=== PATIENT | female | born 2000 | race African-American/Black ===

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

== ENCOUNTER 2018-03-19 14:22 | Emergency (ER) | payer OTHER ==
[~2018-03-19] VITALS: Wt 71.0 kg
[~2018-03-19 14:22] MED LIST: CETI10CA PO; CIPR500T4 PO; NITR-58 PO; PHEN-537 PO
[2018-03-19 14:24] VITALS: BP 156/82; PULSE 90; RESP 20; Wt 71.0 kg
[2018-03-19] MEDS ORDERED: NITR-58 PO (15:41)
--- NOTE | 2018-03-19 15:44 | ERD ---
ER Documentation Chief Complaint Chief Complaint UTI symptoms since Sat HPI 17-year-old female presenting with dysuria and urinary frequency. She states is been going for the last 3 days. Denies any hematuria. Denies back pain. Denies fevers. Denies use of medications. Denies medical problems. Is sexually active with no history of STDs. Last STD screening was a few months ago which was negative. Denies any vaginal discharge. LNMP 3 weeks to go. . NKDA. Surgical history denies. Social history denies ROS All systems reviewed and are negative except as per history of present illness. Medications Home Meds Active Scripts Nitrofurantoin Monohyd Macrocr* (Macrobid*) 100 Mg Capsr, 100 MG PO BID for 14 Days, CAP Prov:SARA BLANCHARD PA-C 03/19/18 Phenazopyridine Hcl* (Pyridium*) 100 Mg Tab, 100 MG PO TID PRN for URINARY PAIN, #8 TAB Prov:MITZI TORRES PA-C 06/11/17 Ciprofloxacin Hcl* (Ciprofloxacin Hcl*) 500 Mg Tablet, 500 MG PO BID for 7 Days, #14 TAB Prov:MITZI TORRES PA-C 06/11/17 Cetirizine Hcl* (Zyrtec*) 10 Mg Capsule, 10 MG PO DAILY, #15 TAB.CHEW Prov:PHILIP JORDAN MD 04/16/17 Nitrofurantoin Monohyd Macrocr* (Macrobid*) 100 Mg Capsr, 100 MG PO BID for 7 Days, CAP Prov:SURESH MILLS 06/24/16 Allergies Allergies: Coded Allergies: No Known Drug Allergies (Verified Allergy, Unknown, 04/16/17) PMhx/Soc Medical and Surgical Hx: pt denies Medical Hx, pt denies Surgical Hx Hx Alcohol Use: No Hx Substance Use: No Hx Tobacco Use: No Smoking Status: Never smoker FmHx Family History: No diabetes, No coronary disease, No other Physical Exam Vitals Vital Signs Date Temp Pulse Resp B/P (MAP) Pulse Ox O2 O2 Flow FiO2 Time Delivery Rate 03/19/18 98.8 90 20 156/82 97 14:24 (106) Physical Exam GENERAL: The patient is well-appearing, well-nourished, in no acute distress CHEST: Clear to auscultation bilaterally. There are no rales, wheezes or rhonchi. HEART: Regular rate and rhythm. No murmurs, clicks, rubs or gallops. No S3 or S4. ABDOMEN:Soft, nontender and nondistended. Good bowel sounds. No rebound or guarding. No gross peritonitis. No gross organomegaly or masses. BACK: No midline or flank tenderness. Results 24 hrs Laboratory Tests Test 03/19/18 15:29 03/19/18 15:31 Bedside Urine pH (LAB) 5.5 Bedside Urine Protein (LAB) Negative Bedside Urine Glucose (UA) Negative Bedside Urine Ketones (LAB) Negative Bedside Urine Blood Trace-lysed Bedside Urine Nitrite (LAB) Negative Bedside Urine Leukocyte Esterase (L 1+ POC Beta HCG, Qualitative NEGATIVE Procedures/MDM MDM: 17-year-old female presenting with dysuria. Patient does have urinary findings consistent with urinary tract infection. I have low suspicion for this. I suspicion for pelvic emergency. Patient recently had STD screenings have low suspicion for STD as patient does not have vaginal discharge. Patient is discharged stricter precautions and told to follow-up with primary care within 1-2 days for close evaluation. Patient is told symptoms change or worsen to return immediately to the ER. All questions answered at discharge Departure Diagnosis: Primary Impression: Dysuria Condition: Stable Patient Instructions: Dysuria Referrals: [facility] YOU HAVE RECEIVED A MEDICAL SCREENING EXAM AND THE RESULTS INDICATE THAT YOU DO NOT HAVE A CONDITION THAT REQUIRES URGENT TREATMENT IN THE EMERGENCY DEPARTMENT. FURTHER EVALUATION AND TREATMENT OF YOUR CONDITION CAN WAIT UNTIL YOU ARE SEEN IN YOUR DOCTORS OFFICE WITHIN THE NEXT 1-2 DAYS. IT IS YOUR RESPONSIBILITY TO MA KE AN APPOINTMENT FOR FOLOW-UP CARE. IF YOU HAVE A PRIMARY DOCTOR --you should call your primary doctor and schedule an appointment IF YOU DO NOT HAVE A PRIMARY DOCTOR YOU CAN CALL OUR PHYSICIAN REFERRAL HOTLINE AT IF YOU CAN NOT AFFORD TO SEE A PHYSICIAN YOU CAN CHOSE FROM THE FOLLOWING [facility] [address] [facility] [address] [facility] [address] [facility] [address] [facility]. [facility] [address] [facility]. [facility] [address] Additional Instructions: FOLLOW UP WITH YOUR PRIMARY CARE PHYSICIAN TOMORROW.Return to this facility if you are not improving as expected. SARA BLANCHARD PA-C Mar 19, 2018 15:44
== END 2018-03-19 16:08 | disposition home or self-care (01) ==
LOC: FTE 14:22
DX: R30.0 Dysuria (principal)
CPT/HCPCS: 81003; 81025; Z7502; 99283

== ENCOUNTER 2018-04-12 19:01 | Emergency (ER) | payer OTHER ==
[~2018-04-12] VITALS: Ht 157.5 cm; Wt 70.8 kg
[2018-04-12 19:23] VITALS: BP 159/100; PULSE 96; RESP 19; Ht 157.5 cm; Wt 70.8 kg
[2018-04-12] MEDS ORDERED: CIPR500T4 PO (21:57)
--- NOTE | 2018-04-12 21:59 | ERD ---
ER Documentation Chief Complaint Chief Complaint C/O BURNING W/ URINATION X1 MONTH, DX W/ UTI 1 MONTH AGO HPI This is a 17-year-old female who has a history of frequent urinary tract infect ions and has had UTI symptoms for about a month. She was seen here about a month ago and was given prescription for Macrobid and she states the pain went away but she continues to have frequency and malodorous urine. No hematuria. No fever. No nausea or vomiting. She states in the past she has had better results relieving her urinary tract infection with Cipro. ROS All systems reviewed and are negative except as per history of present illness. Medications Home Meds Active Scripts Ciprofloxacin Hcl* (Ciprofloxacin Hcl*) 500 Mg Tablet, 500 MG PO BID for 7 Days, TAB Prov:AIDEN MONTOYA PA-C 04/12/18 Nitrofurantoin Monohyd Macrocr* (Macrobid*) 100 Mg Capsr, 100 MG PO BID for 14 Days, CAP Prov:SARA BLANCHARD PA-C 03/19/18 Phenazopyridine Hcl* (Pyridium*) 100 Mg Tab, 100 MG PO TID PRN for URINARY PAIN, #8 TAB Prov:MITZI TORRES PA-C 06/11/17 Ciprofloxacin Hcl* (Ciprofloxacin Hcl*) 500 Mg Tablet, 500 MG PO BID for 7 Days, #14 TAB Prov:MITZI TORRES PA-C 06/11/17 Cetirizine Hcl* (Zyrtec*) 10 Mg Capsule, 10 MG PO DAILY, #15 TAB.CHEW Prov:PHILIP JORDAN MD 04/16/17 Nitrofurantoin Monohyd Macrocr* (Macrobid*) 100 Mg Capsr, 100 MG PO BID for 7 Days, CAP Prov:SURESH MILLS 06/24/16 Allergies Allergies: Coded Allergies: No Known Drug Allergies (Verified Allergy, Unknown, 04/16/17) PMhx/Soc Medical and Surgical Hx: pt denies Medical Hx, pt denies Surgical Hx Hx Alcohol Use: No Hx Substance Use: No Hx Tobacco Use: No Smoking Status: Never smoker FmHx Family History: No diabetes Physical Exam Vitals Vital Signs Date Temp Pulse Resp B/P (MAP) Pulse Ox O2 O2 Flow FiO2 Time Delivery Rate 04/12/18 98.5 96 19 159/100 100 19:23 (119) Physical Exam INITIAL VITAL SIGNS: Reviewed by me GENERAL: Awake, alert and oriented x 4, well appearing, nontoxic, speaking in full sentences. No acute distress HEAD: Atraumatic NECK: Supple. No masses. Full range of motion. No meningismus. No midline tenderness. EYES: EOMI. PERRL. RESPIRATORY: Clear to auscultation bilaterally. Symmetric chest wall rise. No wheezing or rales. No accessory muscle use. CV: Regular rate and rhythm. No murmurs, rubs, or gallops. ABDOMEN: Soft, non-distended. Nontender. Negative Mcdowell. Negative McBurneys point tenderness. No CVA tenderness bilaterally. No guarding. No rebound. Procedures/MDM Patient continues to have UTI symptoms. She has a history of frequent UTIs. Dates that she would like to be placed on Cipro at this time because it gives her a better results. Urine test and culture was sent. She was discharged with Cipro. Patient counseled regarding my diagnostic impression and care plan. Prior to discharge all questions answered. Pt agrees with treatment plan and understands strict return precautions. Pt is instructed to follow up with primary care provider within 24-48 hours. Precautionary instructions provided including instructions to return to the ER if not improving or for any worsening or changing symptoms or concerns. Departure Diagnosis: Primary Impression: Dysuria Condition: Stable Patient Instructions: Dysuria Additional Instructions: Call your primary care doctor TOMORROW for an appointment during the next 1-2 days.See the doctor sooner or return here if your condition worsens before your appointment time. AIDEN MONTOYA PA-C Apr 12, 2018 21:59
== END 2018-04-12 22:41 | disposition home or self-care (01) ==
LOC: FTE 19:01
DX: R30.0 Dysuria (principal)
CPT/HCPCS: 81025; 87086; Z7502; 99283

== ENCOUNTER 2018-07-10 18:55 | Emergency (ER) | payer OTHER ==
[~2018-07-10] VITALS: Wt 73.1 kg
[2018-07-10 19:03] VITALS: BP 152/79; PULSE 97; RESP 18
[2018-07-10] MEDS ORDERED: DOXY100T20 PO (20:34)
[2018-07-10] MEDS ORDERED: IBUP-1542 PO (20:34)
--- NOTE | 2018-07-10 20:36 | ERD ---
ER Documentation Chief Complaint Chief Complaint INGROWN HAIR IN GROIN X'S 2 DAYS HPI 17-year-old female presents with pain and swelling on her left groin for last 2 days. She believes it may be an ingrown hair. She denies any discharge or bleeding or fevers or additional symptoms. Denies any previous history of same. ROS All systems reviewed and are negative except as per history of present illness. Medications Home Meds Active Scripts Ibuprofen* (Motrin*) 600 Mg Tab, 600 MG PO Q6, #15 TAB Prov:PHILIP JORDAN MD 07/10/18 Doxycycline Hyclate* (Doxycycline Hyclate*) 100 Mg Tablet.dr, 100 MG PO BID for 7 Days, TAB Prov:PHILIP JORDAN MD 07/10/18 Ciprofloxacin Hcl* (Ciprofloxacin Hcl*) 500 Mg Tablet, 500 MG PO BID for 7 Days, TAB Prov:AIDEN MONTOYAC 04/12/18 Nitrofurantoin Monohyd Macrocr* (Macrobid*) 100 Mg Capsr, 100 MG PO BID for 14 Days, CAP Prov:SARA BLANCHARD PA-C 03/19/18 Phenazopyridine Hcl* (Pyridium*) 100 Mg Tab, 100 MG PO TID PRN for URINARY PAIN, #8 TAB Prov:MITZI TORRES PA-C 06/11/17 Ciprofloxacin Hcl* (Ciprofloxacin Hcl*) 500 Mg Tablet, 500 MG PO BID for 7 Days, #14 TAB Prov:MITZI TORRES PA-C 06/11/17 Cetirizine Hcl* (Zyrtec*) 10 Mg Capsule, 10 MG PO DAILY, #15 TAB.CHEW Prov:PHILIP JORDAN MD 04/16/17 Nitrofurantoin Monohyd Macrocr* (Macrobid*) 100 Mg Capsr, 100 MG PO BID for 7 Days, CAP Prov:SURESH MILLS 06/24/16 Allergies Allergies: Coded Allergies: No Known Drug Allergies (Verified Allergy, Unknown, 07/10/18) PMhx/Soc Medical and Surgical Hx: pt denies Medical Hx, pt denies Surgical Hx Hx Alcohol Use: No Hx Substance Use: No Hx Tobacco Use: No FmHx Family History: No diabetes, No coronary disease, No other Physical Exam Vitals Vital Signs Date Temp Pulse Resp B/P (MAP) Pulse Ox O2 O2 Flow FiO2 Time Delivery Rate 07/10/18 98.4 97 18 152/79 95 19:03 (103) Physical Exam Const: No acute distress Head: Atraumatic Eyes: Normal Conjunctiva ENT: Normal External Ears, Nose and Mouth. Neck: Full range of motion. No meningismus. Resp: Clear to auscultation bilaterally Cardio: Regular rate and rhythm, no murmurs Abd: Soft, non tender, non distended. Normal bowel sounds Skin: No petechiae or rashes. With the assistance of a golf course laborer examination of the left inner thigh shows a small area of induration approximately 1 cm. No significant redness or fluctuance or discharge appreciated. Back: No midline or flank tenderness Ext: No cyanosis, or edema Neur: Awake and alert Psych: Normal Mood and Affect Procedures/MDM Patient presents with signs and symptoms of early abscess or folliculitis of the left inner thigh. There is no current identified abscess to be drained. No signs of necrotizing fasciitis, significant cellulitis, additional concerning complications. Will treat with instructions for warm compresses, doxycycline, ibuprofen, recommendations for recheck in 2 to 3 days for evaluation for incision and drainage. She should return sooner for fevers, redness, new worsening symptoms. The patient was stable with no new complaints during the ER course. Clinically, there is no current evidence to suggest meningitis, sepsis, acute abdomen, pneumonia, stroke, acute coronary syndrome, pulmonary embolism, aortic dissection or any other emergent condition appearing to require further evaluation or hospitalization. Patient counseled regarding my diagnostic impression and care plan. Prior to discharge all questions answered. Pt agrees with treatment plan and understands strict return precautions. Pt is instructed to follow up with primary care provider within 24-48 hours. Precautionary instructions provided including instructions to return to the ER if not improving or for any worsening or changing symptoms or concerns. Disclaimer: Inadvertent spelling and grammatical errors are likely due to EHR/dictation software use and do not reflect on the overall quality of patient care. Also, please note that the electronic time recorded on this note does not necessarily reflect the actual time of the patient encounter. Departure Diagnosis: Primary Impression: Folliculitis Condition: Stable Patient Instructions: Folliculitis Additional Instructions: Warm compresses or soaks at home. Recheck in 2 to 3 days for possible incision and drainage. Recheck sooner for worsening redness, fevers, new symptoms. PHILIP JORDAN MD July 10, 2018 20:36
== END 2018-07-10 20:54 | disposition home or self-care (01) ==
LOC: FTE 18:55
DX: L73.9 Follicular disorder, unspecified (principal)
CPT/HCPCS: 99283